=== PATIENT | male | born 1955 | race Caucasian/White ===

== ENCOUNTER 2020-01-23 14:45 | Outpatient (REF) | payer MEDICARE, OTHER, SELFPAY ==
[2020-01-23 21:20] LABS: BUN 20 mg/dL (7-18); CREATININE 1.17 mg/dL (0.70-1.30); Calcium 9.4 mg/dL (8.5-10.1); Calculated LDL 173 mg/dL (<100); Chloride 98 mmol/L (98-107); Cholesterol 240 mg/dL (<200); Glucose 290 mg/dL (74-106); HDL Cholesterol 40 mg/dL (40-60); Potassium 4.6 mmol/L (3.5-5.1); Sodium 136 mmol/L (136-145); Triglyceride 138 mg/dL (<150)
[2020-01-23 21:51] LABS: COMMENT (LAB VIEW ONLY) 95.29 mg/dL
== END 2020-01-23 15:05 ==
LOC: NCHCN 14:45
PROVIDERS: PCP Nurse Practitioner Community Health; Visit Provider Nurse Practitioner Community Health
DX: I25.10 Atherosclerotic heart disease of native coronary artery without angina pectoris (principal); E11.9 Type 2 diabetes mellitus without complications; E66.9 Obesity, unspecified
CPT/HCPCS: 80048; 80061; 82043; 82570

== ENCOUNTER 2021-09-22 20:48 | Outpatient (REF) | payer OTHER, SELFPAY ==
[2021-09-22 21:02] LABS: COMMENT (LAB VIEW ONLY) 161.07 mg/dL; Microalb ug/mg Crea 57.5 ug/mg Cr
== END 2021-09-22 20:49 | disposition home or self-care (01) ==
LOC: NCHCN 20:48
PROVIDERS: PCP Nurse Practitioner Community Health; Visit Provider Nurse Practitioner Family
DX: E11.40 Type 2 diabetes mellitus with diabetic neuropathy, unspecified (principal)
CPT/HCPCS: 82043; 82570

== ENCOUNTER 2022-07-29 21:36 | Outpatient (REF) | payer OTHER, SELFPAY ==
[2022-07-29 21:46] LABS: ALT 30 U/L (16-63); AST 20 U/L (15-37); Albumin 3.8 g/dL (3.4-5.0); Alkaline Phosphatase 89 U/L (46-116); Anion Gap 6.4 mmol/L (3-11); BUN 18 mg/dL (7-18); Bilirubin, Total 0.9 mg/dL (0.2-1.0); CO2 27.6 mmol/L (21.0-32.0); CREATININE 1.1 mg/dL (0.70-1.30); Calcium 9.2 mg/dL (8.5-10.1); Calculated LDL 85 mg/dL (<100); Chloride 99 mmol/L (98-107); Cholesterol 141 mg/dL (<200); Estimated GFR 72.67 (mL/min/1.73m2); Glucose 368 mg/dL (74-106); HDL Cholesterol 39 mg/dL (40-60); Potassium 4.6 mmol/L (3.5-5.1); Sodium 133 mmol/L (136-145); Total Protein 7.6 g/dL (6.4-8.2); Triglyceride 89 mg/dL (<150)
[2022-07-29 21:59] LABS: COMMENT (LAB VIEW ONLY) 102.83 mg/dL; Microalb ug/mg Crea 57.5 ug/mg Cr
== END 2022-07-29 21:37 | disposition home or self-care (01) ==
LOC: NCHCN 21:36
PROVIDERS: PCP Nurse Practitioner Community Health; Visit Provider Nurse Practitioner Family
DX: E11.40 Type 2 diabetes mellitus with diabetic neuropathy, unspecified (principal); I25.10 Atherosclerotic heart disease of native coronary artery without angina pectoris; E66.9 Obesity, unspecified; R80.9 Proteinuria, unspecified
CPT/HCPCS: 80053; 80061; 82043; 82570

== ENCOUNTER 2023-02-10 15:35 | Outpatient (REF) | payer OTHER, SELFPAY ==
[2023-02-10 20:20] LABS: ALT 48 U/L (16-63); AST 39 U/L (15-37); Albumin 3.2 g/dL (3.4-5.0); Alkaline Phosphatase 83 U/L (46-116); BUN 27 mg/dL (7-18); Bilirubin, Total 0.7 mg/dL (0.2-1.0); CREATININE 1.2 mg/dL (0.70-1.30); Chloride 103 mmol/L (98-107); Estimated GFR 65.46 (mL/min/1.73m2); Glucose 120 mg/dL (74-106); Potassium 4.5 mmol/L (3.5-5.1); Sodium 137 mmol/L (136-145); Uric Acid 4.7 mg/dL (3.5-7.2)
== END 2023-02-10 15:36 | disposition home or self-care (01) ==
LOC: NCHCN 15:35
PROVIDERS: PCP Nurse Practitioner Community Health; Visit Provider Family Medicine
DX: E11.40 Type 2 diabetes mellitus with diabetic neuropathy, unspecified (principal); I10 Essential (primary) hypertension; I25.10 Atherosclerotic heart disease of native coronary artery without angina pectoris; M10.9 Gout, unspecified
CPT/HCPCS: 80053; 84550

== ENCOUNTER 2023-05-12 14:21 | Outpatient (REF) | payer OTHER, SELFPAY ==
[2023-05-12 21:08] LABS: Creatinine,Urine 51.92 mg/dL
== END 2023-05-12 14:22 | disposition home or self-care (01) ==
LOC: NCHCN 14:21
PROVIDERS: PCP Nurse Practitioner Community Health; Visit Provider Family Medicine
DX: E11.40 Type 2 diabetes mellitus with diabetic neuropathy, unspecified (principal)
CPT/HCPCS: 82565

== ENCOUNTER 2024-01-31 15:37 | Outpatient (REF) | payer OTHER, SELFPAY ==
[2024-01-31 21:25] LABS: ALT 29 U/L (16-63); AST 22 U/L (15-37); Albumin 3.5 g/dL (3.4-5.0); Alkaline Phosphatase 86 U/L (46-116); Anion Gap 6.8 mmol/L (3-11); BUN 28 mg/dL (7-18); Bilirubin, Total 0.5 mg/dL (0.2-1.0); CO2 28.2 mmol/L (21.0-32.0); CREATININE 1.2 mg/dL (0.70-1.30); Calcium 9.4 mg/dL (8.5-10.1); Chloride 101 mmol/L (98-107); Estimated GFR 65.06 (mL/min/1.73m2); Glucose 268 mg/dL (74-106); Potassium 4.8 mmol/L (3.5-5.1); Sodium 136 mmol/L (136-145); Total Protein 7.6 g/dL (6.4-8.2)
[2024-02-01 19:53] LABS: PSA, Screening 3.3 ng/mL (<=6.5)
== END 2024-01-31 15:38 | disposition home or self-care (01) ==
LOC: NCHCN 15:37
PROVIDERS: PCP Nurse Practitioner Community Health; Visit Provider Family Medicine
DX: E11.21 Type 2 diabetes mellitus with diabetic nephropathy (principal); Z12.5 Encounter for screening for malignant neoplasm of prostate
CPT/HCPCS: 80053; 84153; 83036

== ENCOUNTER 2024-08-14 17:58 | Outpatient (REF) | payer OTHER, SELFPAY ==
[2024-08-14 22:08] LABS: COMMENT (LAB VIEW ONLY) 149.27 mg/dL; Microalb ug/mg Crea 318.6 ug/mg Cr
== END 2024-08-14 17:59 | disposition home or self-care (01) ==
LOC: NCHCN 17:58
PROVIDERS: PCP Nurse Practitioner Community Health; Visit Provider Family Medicine
DX: E11.21 Type 2 diabetes mellitus with diabetic nephropathy (principal)
CPT/HCPCS: 82043; 82570

== ENCOUNTER 2025-01-07 16:27 | Outpatient (REF) | payer MEDICARE, SELFPAY ==
[2025-01-07 22:00] LABS: ALT 16 U/L (16-63); AST 16 U/L (15-37); Albumin 3.2 g/dL (3.4-5.0); Alkaline Phosphatase 92 U/L (46-116); Anion Gap 6.6 mmol/L (3-11); BUN 24 mg/dL (7-18); Bilirubin, Total 0.5 mg/dL (0.2-1.0); CO2 29.4 mmol/L (21.0-32.0); CREATININE 1.3 mg/dL (0.70-1.30); Calcium 9.9 mg/dL (8.5-10.1); Chloride 100 mmol/L (98-107); Estimated GFR 58.73 (mL/min/1.73m2); Glucose 284 mg/dL (74-106); NT-proBNP 629 pg/mL (<300); Potassium 4.5 mmol/L (3.5-5.1); Sodium 136 mmol/L (136-145); Total Protein 8.2 g/dL (6.4-8.2)
== END 2025-01-07 16:28 | disposition home or self-care (01) ==
LOC: NCHCN 16:27
PROVIDERS: PCP Nurse Practitioner Community Health; Visit Provider Family Medicine
DX: I50.9 Heart failure, unspecified (principal)
CPT/HCPCS: 80053; 83880

== ENCOUNTER 2025-03-14 12:14 | Outpatient (CLI) | payer MEDICARE, SELFPAY ==
[2025-03-14 12:02] LABS: Abs Immature Grans 0.06 10^3/uL (0.0-0.06); Absolute Basophil Count 0.03 10^3/uL (0.0-0.2); Absolute Eosinophil Count 0.16 10^3/uL (0.0-0.7); Absolute Lymphocyte Count 1.05 10^3/uL (1.2-3.4); Absolute Monocyte Count 0.64 10^3/uL (0.1-0.8); Absolute Neutrophil Count 5.97 10^3/uL (1.2-6.7); Basophils % 0.4 %; HCT 42.1 % (40.0-50.0); HGB 13.6 g/dL (13.5-17.5); Immature Grans % 0.8 %; Lymphocytes % 13.3 %; MCH 25.3 pg (27.0-33.0); MCHC 32.3 % (32.0-36.0); MCV 78 fL (80-95); MPV 9.3 fL (8.0-11.0); Monocytes % 8.1 %; Neutrophils % 75.4 %; Platelet Count 274 10^3/uL (130-400); RBC 5.37 10^6/uL (4.36-5.78); RDW 14.8 % (11.8-14.1); RDW-SD 41.9 fL; WBC 7.91 10^3/uL (4.4-10.8)
[2025-03-14 13:01] LABS: ALT 18 U/L (16-63); AST 14 U/L (15-37); Albumin 3.4 g/dL (3.4-5.0); Alkaline Phosphatase 86 U/L (46-116); Anion Gap 4.8 mmol/L (3-11); BUN 22 mg/dL (7-18); Bilirubin, Total 0.6 mg/dL (0.2-1.0); CO2 31.2 mmol/L (21.0-32.0); CREATININE 1.1 mg/dL (0.70-1.30); Calcium 9.3 mg/dL (8.5-10.1); Chloride 100 mmol/L (98-107); Estimated GFR 71.77 (mL/min/1.73m2); Glucose 180 mg/dL (74-106); NT-proBNP 723 pg/mL (<300); Sodium 136 mmol/L (136-145)
== END 2025-03-14 12:15 | disposition home or self-care (01) ==
LOC: LBO 12:15
PROVIDERS: PCP Family Medicine; Visit Provider Physician Assistant Surgical
DX: R06.00 Dyspnea, unspecified (principal); I50.9 Heart failure, unspecified
CPT/HCPCS: 36415; 80053; 83880; 85025

== ENCOUNTER 2025-04-11 15:43 | Outpatient (REF) | payer MEDICARE, SELFPAY ==
[2025-04-12 18:31] LABS: PSA, Screening 3.6 ng/mL (<=6.5)
== END 2025-04-11 15:44 | disposition home or self-care (01) ==
LOC: NCHCN 15:43
PROVIDERS: PCP Family Medicine; Visit Provider Family Medicine
DX: Z12.5 Encounter for screening for malignant neoplasm of prostate (principal)
CPT/HCPCS: 84153

== ENCOUNTER 2025-05-10 01:07 | Outpatient (CLI) | payer MEDICARE, SELFPAY ==
--- NOTE | 2025-05-10 14:30 | DI.US_ITS ---
APPROVED REPORT EXAM: Comprehensive 2D, Doppler, and color-flow Echocardiogram Patient Location: Out-Patient Insulation Inspector: Jian Fry RDCS (AE) Indications: Heart failure Other Information Study Quality: Adequate. Technically limited study due to body habitus. Conclusion Mildly dilated left ventricle. Normal left ventricular wall thickness. Ejection fraction is 35 to 40%. The septum and anterior rothman are akinetic. Remainder of the ventricle is hypocontractile Normal right ventricular size and function. Normal right atrial size Moderately dilated left atrium The aortic valve is trileaflet and mildly sclerotic with trace regurgitation Ascending aorta measures 3.6 cm Right ventricular systolic pressure could not be estimated Wall motion Left Ventricle Left ventricle is mildly dilated. Left ventricular systolic function is decreased. There is normal left ventricular wall thickness. Anterior and septal akinesis Remainder is hypocontractile There is no ventricular septal defect visualized. LVEF is 35 to 40% Right Ventricle The right ventricle is normal size. Right ventricle is mildly hypokinetic. Atria Left atrium is moderately dilated. The right atrium size is normal. Aortic Valve The aortic valve is mildly sclerotic. Aortic valve is trileaflet. There is no aortic valvular stenosis. Trace aortic regurgitation. Mitral Valve The mitral valve is normal in structure. No evidence of mitral valve stenosis. Trace mitral regurgitation. Tricuspid Valve The tricuspid valve is normal in structure. There is no tricuspid valve stenosis. Trace tricuspid regurgitation. Pulmonic Valve The pulmonary valve is normal in structure. There is no pulmonic valvular stenosis. Mild pulmonic regurgitation. Great Vessels The aortic root is normal in size. The ascending aorta is mildly dilated. IVC is normal in size and collapses >50% with inspiration. Pericardium There is no pericardial effusion. Small loculated left pleural effusion. 2D Dimensions IVSD d PLAX 0.67 cm M: 0.6-1.2 Ao Root d 3.53 cm M: 3.1 - 3.7 LVPW d PLAX 1.05 cm M: 0.6 - 1.2 Ao Asc Diam d 3.60 cm M: 2.6 - 3.4 LVID d PLAX 6.53 cm M: 4.2 - 5.8 LVDs 5.22 cm M: 2.5 - 4.0 LV EF Teichholz 40.2 % FS 20.11 % LV EDV (Teich) 218.3 mL LV ESV (Teich) 130.5 mL Stroke Vol Index (Teich) 40.83 M-Mode TAPSE 0.94 cm (M/F) >1.7 LV Volumes - Method of Disks (Rodriguez's) Single Plane 2D LV Volumes Biplane 2D LV Volumes LV EDV A4C 145.3 mL LV EDV BP 154.03 mL M: 62 - 150 LV ESV A4C 85.0 mL LV ESV BP 92.2 mL LVEF(%) A4C 41.5 % LVEF(%) BP 40.11 % M: 52 - 72 LV EDV A2C 163.2 mL LV EDV BP Index 71.64 mL/m2 M: 34 - 74 LV ESV A2C 96.6 mL SV BP LVEF(%) A2C 40.8 % SV Index LA Volume LA Length A4C 6.1 cm LA Length A2C 5.3 cm LA Area A4C s 24.50 cm2 LA Area A2C s 19.53 cm2 LA Vol A4C A-L 83.45 mL LA Vol A2C A-L 61.35 mL LA Vol Biplane A-L 77.0 mL LA Vol/BSA A4C A-L LA Vol/BSA A2C A-L LA Vol/BSA BP A-L 35.8 mL/m2 LA Vol A4C MOD 78.2 mL LA Vol A2C MOD 59.1 mL LA Vol BP MOD 72.9 mL RA Volume RA Area A4C 9.4 cm2 RA ESV A4C (A-L) 15.5mL RA Vol/BSA A4C A-L RA Length A4C 4.8 cm RA ESV A4C (MOD) 14.7mL LV Diastology MV E' medial 0.039 (>0.07 m/s) MV E Vmax 0.57 (0.4-1.3 m/s) MV E/E' MED 14.67 (<14) MV A Vmax 0.85 (0.4-1.3 m/s) MV E' lateral 0.047 (>0.1 m/s) E/A Ratio 0.7 MV E/E' LAT 12.11 (<14) MV E' Average 0.043 m/s MV E/E'(average) 13.27 Aortic Valve AoV Vmax 0.84 m/s LVOT Vmax 1.00 m/s AoV Peak Grad 2.8 mmHg LVOT Peak Grad 4.0 mmHg AoV Area (Vmax) 5.33 cm2 LVOT VTI 0.216 m AoV VTI 0.186 m LVOT Mean Grad 2.0 mmHg AoV Mean Rios. 0.61 m/s LVOT SV 97.09 mL AoV Mean Grad 1.6 mmHg LVOT Diam s 2.35 cm AoV Area (VTI) 5.23 cm2 AV Regurg Peak Gr. 2.82 mmHg Velocity Ratio 1.19 Mitral Valve MV DT 179 (160-240 msec) Pulmonary Valve PV Vmax 0.91 (0.5-1.5 m/s) RVOT Vmax 0.46 m/s PV Peak Grad 3.3 mmHg RVOT Peak Gr. 0.8 mmHg PV Mean Rios 0.56 m/s RVOT VTI 0.120 m PV Mean Grad 1.4 mmHg RVOT Mean Gr. 0.5 mmHg
== END 2025-05-10 01:27 ==
LOC: DI 01:07
PROVIDERS: PCP Family Medicine; Visit Provider Physician Assistant Surgical
DX: I50.9 Heart failure, unspecified (principal); I08.3 Combined rheumatic disorders of mitral, aortic and tricuspid valves
CPT/HCPCS: 93306

== ENCOUNTER → 2025-05-13 10:28 | Outpatient (BNVA) | payer MEDICARE, SELFPAY | PROVIDERS: PCP Family Medicine; Referring Provider Family Medicine; Visit Provider Physician Assistant Surgical | DX: R06.00 Dyspnea, unspecified (principal); J98.4 Other disorders of lung; J90 Pleural effusion, not elsewhere classified; I50.20 Unspecified systolic (congestive) heart failure | CPT/HCPCS: 99214 ==

== ENCOUNTER 2025-05-13 11:05 | Outpatient (CLI) | payer MEDICARE, SELFPAY ==
[2025-05-13] MEDS: Inhaler, Assist Device 1 EACH MC (12:09)
[2025-05-13] MEDS: Levalbuterol HFA 15 GM INH 4 PUFF IH (12:09)
--- NOTE | 2025-05-15 07:27 | W.PFT ---
Date of service: 05/13/25 Time of Service: 11:10 Pulmonary Function Test Result Indications: Dyspnea Impression 1. Good patient effort was noted. ATS standards for reproducibility were met. 2. Spirometry did not show any obstructive lung disease 3. Following the administration of a bronchodilator there was not a significant response 4. TLC is reduced at 55% predicted, consistent with moderate restrictive lung disease 5. DLCO was 54%, consistent with a moderate defect in alveolar gas exchange Conclusion: moderate restriction with reduced DLCO. Underlying interstitial lung disease should be considered
== END 2025-05-13 11:06 | disposition home or self-care (01) ==
PROVIDERS: PCP Family Medicine; Visit Provider Internal Medicine Pulmonary Disease
DX: R06.00 Dyspnea, unspecified (principal); J44.9 Chronic obstructive pulmonary disease, unspecified
CPT/HCPCS: 94060; 94726; 94729

== ENCOUNTER 2025-05-13 14:19 | Outpatient (CLI) | payer MEDICARE, SELFPAY ==
--- NOTE | 2025-05-13 12:00 | DI.RAD_ITS ---
Exam(s) XR CHEST 2V PA LATERAL EXAM: XR CHEST 2V PA LATERAL CLINICAL HISTORY: I50.9,R06.00 Heart failure, dyspnea unspecified, continued SOB TECHNIQUE: 2D digital imaging was performed of the chest. Two images were obtained. PA and lateral views were obtained. COMPARISON: CR XR CHEST 2VW (D) from 09/29/[address] ABD PELVIS WO IV OR ORAL CONTRAST from 10/28/2024 FINDINGS: MEDIASTINUM: Normal. HEART: Normal. PULMONARY VASCULATURE: Normal. LUNGS: There has been improved aeration of the right lung base but a persistent right pleural effusion and small basilar infiltrate is seen. The nodular opacities in the left lung base appear to have decreased in size but are still present. The larger measures 6.8 cm. There is a persistent left pleural effusion. No new infiltrates are seen in the lungs. PLEURAL SPACE: No pleural effusion or pneumothorax. BONE:Within normal limits for the patient's age. OTHER FINDINGS:Normal. IMPRESSION: Overall, there is a improvement in the appearance of the lungs compared to 09/29/2024, particularly in the right lung base. There are persistent rounded opacities in the left lung base which have shown a decrease in size. DATA REPOSITORY: RADIATION DOSE DELIVERED:
== END 2025-05-13 14:39 ==
LOC: DI 14:20
PROVIDERS: PCP Family Medicine; Visit Provider Physician Assistant Surgical
DX: R06.00 Dyspnea, unspecified (principal); I50.9 Heart failure, unspecified
CPT/HCPCS: 71046

== ENCOUNTER 2025-06-05 15:43 | Outpatient (REF) | payer MEDICARE, SELFPAY ==
[2025-06-05 22:07] LABS: HCT 34.4 % (40.0-50.0); HGB 11.1 g/dL (13.5-17.5); MCH 25.3 pg (27.0-33.0); MCHC 32.3 % (32.0-36.0); MCV 78 fL (80-95); MPV 10.4 fL (8.0-11.0); Platelet Count 292 10^3/uL (130-400); RBC 4.39 10^6/uL (4.36-5.78); RDW 15.2 % (11.8-14.1); RDW-SD 43.8 fL; WBC 8.13 10^3/uL (4.4-10.8)
[2025-06-05 22:27] LABS: Hemoglobin A1C 7.8 % (<5.7)
[2025-06-05 22:50] LABS: ALT 32 U/L (16-63); AST 24 U/L (15-37); Albumin 2.8 g/dL (3.4-5.0); Alkaline Phosphatase 108 U/L (46-116); Anion Gap 11.8 mmol/L (3-11); BUN 16 mg/dL (7-18); Bilirubin, Total 0.7 mg/dL (0.2-1.0); CO2 27.2 mmol/L (21.0-32.0); Calcium 8.6 mg/dL (8.5-10.1); Calculated LDL 59 mg/dL (<100); Chloride 100 mmol/L (98-107); Cholesterol 104 mg/dL (<200); Estimated GFR 49.16 (mL/min/1.73m2); Glucose 87 mg/dL (74-106); HDL Cholesterol 34 mg/dL (>or=40); Potassium 4.0 mmol/L (3.5-5.1); Sodium 139 mmol/L (136-145); Total Protein 6.5 g/dL (6.4-8.2); Triglyceride 59 mg/dL (<150)
== END 2025-06-05 15:44 | disposition home or self-care (01) ==
LOC: NCHCN 15:43
PROVIDERS: PCP Family Medicine; Visit Provider Family Medicine
DX: Z79.4 Long term (current) use of insulin (principal); I10 Essential (primary) hypertension; E78.5 Hyperlipidemia, unspecified
CPT/HCPCS: 80053; 80061; 85027; 83036

== ENCOUNTER → 2025-07-23 09:36 | Outpatient (BNVA) | payer MEDICARE, SELFPAY | PROVIDERS: PCP Family Medicine; Referring Provider Family Medicine; Visit Provider Internal Medicine Pulmonary Disease | DX: J92.0 Pleural plaque with presence of asbestos (principal); J98.4 Other disorders of lung; J90 Pleural effusion, not elsewhere classified; Z77.090 Contact with and (suspected) exposure to asbestos; R06.00 Dyspnea, unspecified | CPT/HCPCS: 99215; 76604 ==

== ENCOUNTER → 2025-08-13 14:11 | Outpatient (BNVA) | payer MEDICARE, SELFPAY | PROVIDERS: PCP Family Medicine; Referring Provider Family Medicine; Visit Provider Internal Medicine Pulmonary Disease | DX: J98.4 Other disorders of lung (principal); J92.0 Pleural plaque with presence of asbestos; R06.00 Dyspnea, unspecified; Z87.891 Personal history of nicotine dependence; R91.8 Other nonspecific abnormal finding of lung field; I50.20 Unspecified systolic (congestive) heart failure | CPT/HCPCS: 99214 ==